=== PATIENT | female | born 1990 | race Caucasian/White ===

== ENCOUNTER 2016-03-12 13:27 | Emergency (ER) | payer SELFPAY ==
[~2016-03-12 13:27] MED LIST: BUTA1CAP39 PO; CIPR7.5D4 LEFT EAR; DICL50TA2 PO; HYDR-762 PO; IBUP-1542 PO; NAPR-733 PO; NPH10OT LEFT EAR; ONDA4TAB35 PO
== END 2016-03-12 14:13 | disposition left against medical advice (07) ==
LOC: E/R 13:27
DX: Z53.21 Procedure and treatment not carried out due to patient leaving prior to being seen by health care provider (principal)

== ENCOUNTER 2016-04-25 17:17 | Emergency (ER) | payer SELFPAY ==
[~2016-04-25] VITALS: Ht 154.9 cm; Wt 67.5 kg
[2016-04-25 17:21] VITALS: Ht 154.9 cm; Wt 67.5 kg
[2016-04-25] MEDS ORDERED: DIPHENHYDRAMINE 50 MG INJ IV STA (18:56)
[2016-04-25] MEDS ORDERED: METOCLOPRAMIDE 10 MG INJ IV STA (18:56)
[2016-04-25] MEDS ORDERED: KETOROLAC 30 MG INJ IV STA (18:56)
[2016-04-25 19:46] LABS: URINE BLOOD (Dip) POC Negative (NEGATIVE)
[2016-04-25 19:52] LABS: BASOPHILS % 0.5 % (0.0-2.0); EOSINOPHILS # 0.1 10^3/ul (0.0-0.5); EOSINOPHILS % 1.7 % (0.0-7.0); HEMATOCRIT 35.4 % (37.0-47.0); HEMOGLOBIN 12.1 g/dl (12.0-16.0); LYMPHOCYTES # 3.2 10^3/ul (0.8-2.9); MEAN CORPUSCULAR HEMOGLOBIN 29.6 pg (29.0-33.0); MEAN CORPUSCULAR VOLUME 87.1 fl (82.0-101.0); MEAN PLATELET VOLUME 7.6 fl (7.4-10.4); MONOCYTE # 0.5 10^3/ul (0.3-0.9); MONOCYTES % 7.3 % (0.0-11.0); NEUTROPHIL # 3.3 10^3/ul (1.6-7.5); NEUTROPHILS % 46.5 % (39.0-77.0); PLATELET COUNT 285 10^3/UL (140-440); RED BLOOD COUNT 4.07 10^6/ul (4.20-5.40); RED CELL DISTRIBUTION WIDTH 13.5 % (11.5-14.5); UNCORRECTED WBC 7.2 10^3/ul (4.8-10.8); WHITE BLOOD COUNT 7.2 10^3/ul (4.8-10.8)
[2016-04-25 19:53] LABS: CONDITION 1
[2016-04-25 19:58] LABS: POTASSIUM 3.9 mmol/L (3.5-5.1)
[2016-04-25 20:01] LABS: CREATININE 0.68 mg/dl (0.44-1.00)
[2016-04-25 20:02] LABS: CALCIUM 9.7 mg/dl (8.4-10.2)
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
--- NOTE | 2016-04-25 20:57 | RADRPT ---
PROCEDURE: Obstetrical ultrasound CLINICAL INDICATION: Hardening, pelvic pain TECHNIQUE: Chandler scale, color doppler, spectral doppler ultrasound of the pelvis was performed with transabdominal and transvaginal transducers. COMPARISON: No prior studies are available for comparison. FINDINGS: Uterus: Position: Anteverted. Normal myometrial echogenicity. Normal appearance of the endometrium. Ovaries: Normal sized ovaries with preserved blood flow. No adnexal masses. Free fluid: Trace amount Measurements: Endometrial thickness is 0.5 cm. Right ovary: 2.9 x 1.8 x 2.1 cm Left ovary: 3.5 x 2.1 x 2.0 cm IMPRESSION: Trace amount of free fluid. No sonographic evidence of intrauterine or extrauterine gestation is seen. Unless clinically contraindicated recommend correlation with quantitative beta HCG trend and repeate d pelvic ultrasound. RPTAT: AADD .Bob Norman MD, Date Time Electronically viewed and signed by .Bob Norman MD, on 04/25/2016 20:57 .B/
[2016-04-25 21:06] LABS: BARBITURATES NEGATIVE (NEGATIVE); BENZODIAZEPINES NEGATIVE (NEGATIVE); CANNABINOIDS NEGATIVE (NEGATIVE); COCAINE NEGATIVE (NEGATIVE); OPIATES NEGATIVE (NEGATIVE)
[2016-04-25] MEDS ORDERED: HYDR-906 PO (22:11)
[2016-04-25 22:38] VITALS: BP 122/81; PULSE 77; RESP 18; TEMP 98.5
== END 2016-04-25 22:39 | disposition home or self-care (01) ==
LOC: FTE 17:17
DX: R51 Headache (principal); R07.9 Chest pain, unspecified
CPT/HCPCS: 36415; 76801; 76817; 80048; 80307; 81003; 84702; 85025; 86900; 86901; 93005; 96374; 96375; 99285; J1200; J2765

== ENCOUNTER 2017-02-23 08:46 | Emergency (ER) | payer OTHER ==
[~2017-02-23] VITALS: Ht 160 cm; Wt 60.2 kg
[~2017-02-23 08:46] MED LIST changes: +HYDR-906 PO
[2017-02-23 08:48] VITALS: Ht 160 cm; Wt 60.2 kg
--- NOTE | 2017-02-23 10:43 | ERD ---
ER Documentation Chief Complaint Chief Complaint fever , chills , sore throat , cough x 5 days HPI 27-year-old female presents emergency department for fever, chills, sore throat , cough for 5 days. Denies headache, dizziness, blurry vision, neck pain, neck stiffness, difficulty swallowing, shoulder pain, chest pain, back pain, abdominal pain, nausea, vomiting, constipation, diarrhea, loss of bowel bladder control, urinary symptoms, or possibility of being , trauma, injury, falls, difficulty breathing when lying flat, recent long travel, recent travel, recent exposure to any illness, recent antibiotic use in the last 3 months, numbness or tingling sensation, difficulty walking. LMP: Stated that she does not have menstrual periods. Stated that she has Nexplanon. M1. ROS All systems reviewed and are negative except as per history of present illness. Medications Home Meds Active Scripts Acetaminophen* (Tylophen*) 500 Mg Capsule, 1 CAP PO Q6H Y for PAIN AND OR ELEVATED TEMP, #20 CAP Prov:WILMAN WEEMS F 02/23/17 Ibuprofen* (Motrin*) 600 Mg Tab, 600 MG PO Q8, #20 TAB Prov:WESILADEWAYNESEANAGGIE F 02/23/17 Benzonatate* (Tessalon Perle*) 100 Mg Capsule, 100 MG PO Q8H Y for COUGH, #20 CAP Prov:PASILADEWAYNESEANAGGIE F 02/23/17 Azithromycin* (Zithromax*) 250 Mg Tablet, 250 MG PO .ZPACK DIRECTED, #6 TAB TAKE 500 MG (2 TABS) THE FIRST DAY THEN 250 MG (1 TAB) DAYS 2-5 Prov:WESILAWILMAN BUCHANAN F 02/23/17 Hydrocodone/Acetaminophen ([place] 5-325 Tablet) 1 Each Tablet, 1 TAB PO Q6H Y for PAIN, #10 TAB Prov:FIDE CORDERO 04/25/16 Ondansetron Hcl* (Zofran* ODT) 4 mg -ODT Tab.disper, 4 MG PO Q6 Y for NAUSEA AND /OR VOMITING, #10 TAB Prov:MARIANO RODRIGUEZ PA-C 02/06/15 Hydrocodone Bit-Acetaminophen* ([place]*) 10-325 Mg Tablet, 1 TAB PO Q8 Y for PAIN , #7 TAB Prov:CONCEPCION KRUSE DO 01/29/15 Ciprofloxacin Hcl/Dexameth (Ciprodex Otic Suspension) 7.5 Ml Drops.susp, 4 DROP LEFT EAR BID, #1 DROP Prov:CONCEPCION KRUSE DO 01/29/15 Diclofenac Potassium (Diclofenac Potassium) 50 Mg Tablet, 50 MG PO Q8, #15 Prov:CONCEPCION KRUSE DO 01/29/15 Neomycin/Polymyxin/Hydrocort* (Cortisporin* Otic) 10 Ml Susp, 4 DROP LEFT EAR QID for 7 Days, EA Prov:REINA PEÑALOZA 01/27/15 Ibuprofen* (Ibuprofen*) 600 Mg Tablet, 600 MG PO Q6, #30 TAB Prov:EZIO FLORES MD 08/28/14 Hsgsgniypgesn-Yzlozedmrk-Tfaybzyj-Codeine* (Fioricet w/ Codeine*) [id number] 30MG Capsule, 1 CAP PO Q6H Y for PAIN LEVEL 1-5, #10 CAP Prov:EZIO FLORES MD 08/28/14 Reported Medications Naproxen* (Flanax*) 220 Mg Tablet, 220 MG PO BID Y for PAIN LEVEL 1-3, TAB 08/28/14 Allergies Allergies: Coded Allergies: No Known Allergy (Verified , NKA, 02/06/15) PMhx/Soc History of Surgery: Yes (Gallbladder, Lt shoulder surgery) Anesthesia Reaction: No Hx Neurological Disorder: Yes (Migraines) Hx Respiratory Disorders: No Hx Cardiac Disorders: No Hx Psychiatric Problems: No Hx Miscellaneous Medical Probl: No Hx Alcohol Use: Yes (socially) Hx Substance Use: No Hx Tobacco Use: No Smoking Status: Never smoker Physical Exam Vitals Vital Signs Date Time Temp Pulse Resp B/P Pulse Ox O2 Delivery O2 Flow Rate FiO2 02/23/17 08:48 99.1 92 18 137/83 98 Physical Exam Const: Well-appearing. Not in acute respiratory distress. Head: Atraumatic Eyes: Normal Conjunctiva. Intraocular movement of her eyes within normal limits. PERRLA. No pain in eye movement. ENT: Normal External Ears, Nose and Mouth. Left ear: TM is not erythematous. Right ear: TM is not erythematous. No bleeding. No discharge. Throat: Uvula is midline and not displaced. Tonsils are +1 bilaterally with mild redness but no exudates. Tolerating secretions. Patent airway. Speaks full and clear sentences. Neck: Full range of motion..~ No meningismus. No signs of meningeal irritation. Resp: Clear to auscultation bilaterally. Cardio: Regular rate and rhythm, no murmurs Abd: Soft, non tender, non distended. Normal bowel sounds Skin: No petechiae or rashes Back: No midline or flank tenderness Ext: No cyanosis, or edema Neur: Awake and alert. No neurological deficits. Romberg test is negative. Psych: Normal Mood and Affect Procedures/MDM Differential: I have low suspicion for sepsis, serious or severe bacterial infection, meningitis, peritonsillar abscess, pneumonia. Final diagnosis: Bronchitis. Prescription: Azithromycin. Tessalon. Tylenol. Motrin. Follow-up with PCP in the next 3-4 days. Come back here in the emergency department for any new symptoms or any worsening symptoms. All questions and concerns are answered. Patient verbalized understanding and agreed with the plan of care. Hemodynamically stable on discharge. Departure Diagnosis: Primary Impression: Acute bronchitis Condition: Stable Additional Instructions: Follow-up with PCP in the next 3-4 days. Come back here in the emergency department for any new symptoms or any worsening symptoms. All questions and concerns are answered. Patient verbalized understanding and agreed with the plan of care. WILMAN WEEMS Feb 23, 2017 10:43
[2017-02-23] MEDS ORDERED: AZIT250T94 PO (10:45)
[2017-02-23] MEDS ORDERED: IBUP-1542 PO (10:45)
[2017-02-23] MEDS ORDERED: ACET500C5 PO (10:45)
[2017-02-23] MEDS ORDERED: BENZ100C70 PO (10:45)
== END 2017-02-23 16:22 | disposition home or self-care (01) ==
LOC: FTE 08:46
DX: J20.9 Acute bronchitis, unspecified (principal)
CPT/HCPCS: 99284

== ENCOUNTER 2017-03-07 05:06 | Emergency (ER) | payer SELFPAY ==
[~2017-03-07 05:06] MED LIST changes: +ACET500C5 PO; +AZIT250T94 PO; +BENZ100C70 PO
== END 2017-03-07 05:17 | disposition left against medical advice (07) ==
LOC: E/R 05:06
DX: Z53.21 Procedure and treatment not carried out due to patient leaving prior to being seen by health care provider (principal)